=== PATIENT | female | born 1990 | race Caucasian/White ===

== ENCOUNTER → 2016-05-06 | Outpatient (CLI) | payer BC ==
--- NOTE | 2016-05-06 10:20 | US ---
May 06, 2016 Dear Marisela Poe NP, Thank you for allowing us to see your patient regarding anatomy. As you know she is a 25 year-old gr avida 1, para 0. Her due date is 09/23/16 which is based on L and 7 week u/s. Her current gestationa l age based on this dating is 21 weeks 3 days. She declined aneuploidy screen in your office. Number of fetuses: 1 Placental location: anterior Cord Insertion: Central presentation: breech Cervix: 3.9 cm By TVUS done secondary to ? CL <3.5 on TA views MVP: 3.6 cm The adnexa were evaluated. No pathology was seen. Right ovary seen Left ovary seen Measurements: Biparietal diameter: 49 mm 20 weeks, 6 days Head circumference: 192 mm 21 weeks, 4 days Abdominal circumference: 176 mm 22 weeks, 4 days Femur length: 36 mm 21 weeks, 3 days Humerus length: 36 mm 22 weeks, 4 days Transcerebellar diameter: 22 mm 20 weeks, 3 days Average ultrasound age: 21 weeks, 5 days Estimated weight: 459 gm weight percentile: 69 % ANATOMY Upper extremities: Normal Lower extremities: Normal Supratentorial brain: Normal Lateral ventricle: 6.4 mm Posterior fossa: Normal Cisterna Magna: 4.9 mm Spine: Normal Nuchal fold: 4.7 mm Face: Normal nose, lip, profile, alveolar ridge Heart: Normal rate, rhythm, axis, 4 chamber view, LVOT, RVOT, IVS LVEIF seen Stomach: Normal Diaphragm Normal Umbilical cord insertion: Normal Right kidney: Normal Left kidney: Normal Bladder: Normal Number of cord vessels: Three. Impression: This is a 25 year-old, 1, para 0 at 21 weeks, 3 days gestation. 1. SIUP with biometry cw ga of 21 weeks. Nl MVP. 2. An echogenic intracardiac focus (EIF) was noted. This focus represents a prominent papillary muscl e that is of no clinical significance except for a weak association with Down syndrome. No other emerson ers for aneuploidy were visualized. In the absence of other sonographic markers or a high risk histo ry for Down syndrome, this is likely an incidental finding. I explained that the only way to exclude the diagnosis of a chromosome abnormality is with amniocen tesis. Risks and benefits of amniocentesis were reviewed. Given the normal ultrasound findings othe rwise, she declined amniocentesis. We also reviewed the option of NIPT and she desired this today so lab slip was given and sensitivity/specificity reviewed. Thank you for allowing me to see your patient. Approximately 15 minutes was spent with the patient a nd 15 was spent discussing her issues. Ester Lucas MD Diagnosis Division of Maternal Medicine Department of Obstetrics and Gynecology [facility]
--- NOTE | 2016-05-06 11:07 | US ---
Complete Detailed Obstetrical Sonography Clinical History: 25-year-old female who presents for anatomic survey and biometry. Technique: Initially, a curvilinear 5 MHz transducer was used to sonographically evaluate the fetus a nd placenta. M-mode Doppler is used. Dr. Ester Lucas is present. Supplementary endovaginal pelvic s onography was also performed to evaluate the maternal cervical length. Comparison Study: First trimester obstetrical sonography, dated March 11, 2016. LMP: December 08, 2015 indicating an age of 21 weeks 3 days, and an estimated date of delivery of September. Findings: Again, there is a single viable intrauterine gestation. The fetus is currently breech in pr esentation. There is a three-vessel cord with a normal central cord insertion. The maternal cervical length measures 3.9 cm, measured endovaginally. The placenta is anteriorly-situated, with no previa. The maternal right ovary measures 3.6 x 2.0 x 2.7 cm, and the maternal left ovary measures 2.2 x 1.3 x 1.7 cm. The amniotic fluid volume is appropriate, with a maximal vertical pocket of 3.6 cm. The anatomic survey reveals a normal appearance to the supratentorial and infratentorial struct ures. The lateral ventricular diameter is 6.4 mm, the cisterna magna is 4.9 mm, and the nuchal fold i s 4.7 mm. The spine appears normal. The nasolabial anatomy and the alveolar ridge are normal. T here is a four-chambered heart with right and left ventricular outflow tracts and an interventricular septum. Incidental note is made of a left ventricular echogenic intracardiac focus. The diaphragm is intact. The stomach, right and left kidneys, urinary bladder, and upper and lower extremities are no rmal. The gender is believed to be male (image 5). biometry is as follows: The biparietal diameter is 49 mm, corresponding to an age of 20 weeks 6 days +/- 1 week 6 days, which is at the 23rd percentile. The head circumference is 192 mm, corresponding to an age of 21 weeks 4 days +/- 1 week 4 days, which is at the 41st percentile. The abdominal circumference is 175 mm, corresponding to an age of 22 weeks 4 days +/- 2 weeks 1 day, which is at the 76th percentile. The femur length is 36 mm, corresponding to an age of 21 weeks 3 days +/- 1 week 6 days, which is at the 40th percentile. The humeral length is 36 mm, corresponding to an age of 22 weeks 4 days, and the transcerebellar diam eter is 22 mm, corresponding to an age of 20 weeks 3 days +/- 1 week 0 days for a composite gestation al age of 21 weeks 5 days, which is concordant with biometry. The estimated weight is 459 grams +/- 67 grams, which is 1 pound 0 ounces +/- 2 ounces, which i s at the 69th percentile. The head circumference to abdominal circumference ratio is normal, measuring 1.09. The femur length t o biparietal diameter ratio is 74%. The femur length to abdominal circumference ratio is normal, anay uring 21%. Impression: There is a single viable intrauterine gestation with a normal amniotic fluid volume and b iometry concordant with menstrual dating. The anatomic survey is notable only for an isolated l eft ventricular echogenic intracardiac focus, of dubious significance given the lack of any other abn ormalities. Please also refer to Dr. Lucas's separate assessments and specific recommendations for follow up.
== END ==
LOC: FIMAGING 08:49
PROVIDERS: ATTEND Obstetrics & Gynecology
DX: Z34.02 Encounter for supervision of normal first pregnancy, second trimester (principal); Z3A.21 21 weeks gestation of pregnancy